=== PATIENT | female | born 1945 | race Caucasian/White ===

== ENCOUNTER 2016-03-09 13:32 | Outpatient (CLI) | payer MEDICARE, OTHER | END 2016-03-09 13:33 | disposition home or self-care (01) | DX: R91.1 Solitary pulmonary nodule (principal); R06.01 Orthopnea; R09.02 Hypoxemia; R09.89 Other specified symptoms and signs involving the circulatory and respiratory systems ==

== ENCOUNTER 2016-04-08 | Outpatient (CLI) | payer MEDICARE, OTHER | END 2016-04-08 09:41 | disposition short-term general hospital (02) | DX: R06.02 Shortness of breath (principal) | CPT/HCPCS: A0425; A0427 ==

== ENCOUNTER 2016-05-11 09:24 | Outpatient (CLI) | payer MEDICARE, OTHER ==
[2016-05-11] MEDS ORDERED: ALBUTEROL NEB 2.5 MG/3 ML INH ONE (09:33)
== END 2016-05-11 09:25 | disposition home or self-care (01) ==
DX: J44.9 Chronic obstructive pulmonary disease, unspecified (principal); R09.02 Hypoxemia
CPT/HCPCS: 94060; J7613

== ENCOUNTER 2016-06-08 10:36 | Outpatient (CLI) | payer MEDICARE, OTHER ==
[2016-06-08] MEDS ORDERED: IOPAMIDOL-300 50 ML VIAL IVP ONE (12:35)
== END 2016-06-08 10:37 | disposition home or self-care (01) ==
DX: R91.1 Solitary pulmonary nodule (principal); R49.0 Dysphonia; Z87.891 Personal history of nicotine dependence; J43.9 Emphysema, unspecified
CPT/HCPCS: 36415; 71260; 82565; Q9967

== ENCOUNTER 2016-08-13 08:32 | Outpatient (CLI) | payer MEDICARE, OTHER ==
[2016-08-13] MEDS ORDERED: GADOBUTROL 7.5 MMOL/7.5 ML VIAL IVP ONE (09:54)
--- NOTE | 2016-08-13 12:41 | MRI Report ---
EXAM: MRI BRAIN WITHOUT AND WITH CONTRAST EXAM DATE: 08/13/2016 10:12 AM. CLINICAL HISTORY: 71-year-old woman with lung cancer. COMPARISON: None. TECHNIQUE: Multiplanar, multisequence T1-weighted and fluid-sensitive MR sequences of the brain were performed. Sequences optimized for routine evaluation. Other: None. Without and with IV Contrast: 5 c c Gadavist. FINDINGS: Parenchyma: No evidence of acute infarct on diffusion weighted sequence. The parenchyma demonstrates moderate burden of nonspecific FLAIR hyperintensities in the deep cerebral and periventricular white matter, most consistent with sequelae of chronic small vessel ischemic disease and a common finding i n this age group. Susceptibility weighted sequences demonstrate a remote microhemorrhage in the right clay-trigonal white matter. No abnormal enhancement. Pituitary: Unremarkable. Ventricles and Extra-axial Spaces: Ventricles are symmetric and normal in size for age. Extra-axial s paces are unremarkable. No abnormal enhancement. Orbits: Unremarkable. Sinuses: The paranasal sinuses are clear except for a small mucous retention cyst in the right maxill sulma sinus. Mastoid air cells are clear. Major Vascular Flow Voids: Intact. Dural Venous Sinuses and Major Central Veins: Patent on post-contrast images. IMPRESSION: 1. No acute intracranial abnormality. Specifically, no evidence of acute infarct, hemorrhage, or mass lesion. No abnormal enhancement to suggest metastatic disease. 2. Moderate white matter changes, most consistent with sequelae of chronic small vessel ischemic dise ase and a common finding in this age group. [facility] Referring Provider Line: [phone] SITE ID: [id number]
== END 2016-08-13 08:33 | disposition home or self-care (01) ==
LOC: DI 08:32
PROVIDERS: ATTEND Internal Medicine Pulmonary Disease
DX: C34.91 Malignant neoplasm of unspecified part of right bronchus or lung (principal)
CPT/HCPCS: 70553; A9585

== ENCOUNTER 2016-09-11 09:30 | Outpatient (CLI) | payer MEDICARE, OTHER ==
--- NOTE | 2016-09-11 11:00 | Ultrasound Report ---
LEFT LEG VENOUS DUPLEX: 09/11/2016 CLINICAL INDICATION: Pain. TECHNIQUE: Real-time sonographic vascular imaging was performed by the planning technician through the left l ower extremity utilizing both color flow and Doppler spectral analysis. Multiple compliance representative stati c images were saved for review. FINDINGS: A left lower extremity venous sonogram is performed revealing the common femoral, superfici al femoral, profunda femoris, and popliteal veins to be adequately visualized without intraluminal de fects. There is normal venous compression, augmentation, phasicity, and spontaneity of venous flow. I n the calf, the visualized more cephalad portions of posterior tibial and peroneal veins are grossly compressible, without filling defects. IMPRESSION: NO EVIDENCE OF DEEP VENOUS THROMBOSIS. JOB #: [id number] EXT JOB #:[id number]
== END 2016-09-11 09:31 | disposition home or self-care (01) ==
LOC: DI 09:30
PROVIDERS: ATTEND Nurse Practitioner Family
DX: M79.605 Pain in left leg (principal)

== ENCOUNTER 2018-04-25 12:13 | Emergency (ER) | payer MEDICARE, OTHER ==
[2018-04-25] MEDS ORDERED: IPRATROPIUM/ALBUTEROL 3 ML NEB INH STA (12:39)
[2018-04-25] MEDS ORDERED: SODIUM CHLORIDE 0.9% 1,000 ML IV ONE (12:40)
--- NOTE | 2018-04-25 12:52 | ED Physician Documentation ---
History of Present Illness - Stated complaint Stated Complaint: SOA/DIZZY/NO APPITITE - Chief complaint Chief Complaint: Resp - History obtained from History obtained from: Patient - History of Present Illness Timing: How many weeks ago (3) Pain level max: 4 Pain level now: 3 Improved by: rest Worsened by: exertion - Additonal information Additional information: 73 year old female with history of Stage 3 lung CA 2 years ago that went untreated. now increased body aches, fatigue, dyspnea. Review of Systems Constitutional: denies: Fever, Chills Ears: denies: Ear pain Nose: denies: Rhinorrhea / runny nose, Congestion Respiratory: reports: Cough GI: denies: Vomiting, Diarrhea Skin: denies: Rash Musculoskeletal: denies: Neck pain, Back pain PD PAST MEDICAL HISTORY - Past Medical History Cardiovascular: Hypertension Respiratory: Other - Past Surgical History Past Surgical History: Yes Ortho: Hip replacement, Carpal Tunnel surgery /[employer]: Hysterectomy - Present Medications Home Medications: Ambulatory Orders Medication Instructions Recorded Confirmed Aspirin 1 tab PO DAILY 02/28/14 04/25/18 Lisinopril 1 tab DAILY 02/28/14 04/25/18 Albuterol Sulf [Ventolin Hfa 1 - 2 puffs INH Q4HR PRN #1 inhaler 04/25/18 Inhaler] Albuterol Sulf [Ventolin Hfa 2 puffs INH Q4HR PRN 04/25/18 04/25/18 Inhaler] Doxycycline Hyclate 100 mg PO BID #20 capsule 04/25/18 Ondansetron Odt [Zofran] 4 mg TL Q6H PRN #10 tablet 04/25/18 Tiotropium [place] [Spiriva] 1 cap INH DAILY 04/25/18 04/25/18 predniSONE [Deltasone] 10 mg PO [id number] #42 tab 04/25/18 - Allergies Allergies/Adverse Reactions: Allergies Allergy/AdvReac Type Severity Reaction Status Date / Time Penicillins Allergy Unknown Verified 04/25/18 12:26 vancomycin Allergy Unknown Verified 04/25/18 12:26 - Social History Does the pt smoke?: No Smoking Status: Former smoker Does the pt drink ETOH?: No Does the pt have substance abuse?: No - Immunizations Immunizations are current?: No Immunizations: TDAP >10years/unknown PD ED PE NORMAL - Vitals Vital signs reviewed: Yes - General General: Alert and oriented X 3, No acute distress, Well developed/nourished - HEENT HEENT: PERRL, Moist mucous membranes - Neck Neck: Supple, no meningeal sign - Cardiac Cardiac: RRR - Respiratory Respiratory: No respiratory distress, Other (Diminished breath sounds bilaterally) - Abdomen Abdomen: Soft, Non tender, Non distended - Derm Derm: Warm and dry, No rash - Extremities Extremities: No edema - Neuro Neuro: Alert and oriented X 3 - Psych Psych: Normal mood, Normal affect Results - Vitals Vitals: Vital Signs - 24 hr 04/25/18 04/25/18 04/25/18 12:20 12:37 13:01 Temperature 36.2 C L Heart Rate 118 H 114 H 98 Respiratory 26 H 24 16 Rate Blood Pressure 151/92 H 138/84 H O2 Saturation 94 94 04/25/18 04/25/18 13:44 14:23 Temperature Heart Rate 100 94 Respiratory 22 18 Rate Blood Pressure 145/84 H 147/69 H O2 Saturation 95 94 Oxygen O2 Source Room air - EKG (time done) 1241 Rate: Rate (enter#) (105) Rhythm: Sinus tachycardia [place]: Normal Intervals: Normal MO QRS: Normal Ischemia: Normal ST segments - Labs Labs: Laboratory Tests 04/25/18 04/25/18 04/25/18 12:50 12:50 12:50 WBC 7.7 RBC 4.77 Hgb 14.3 Hct 42.9 MCV 89.9 MCH 30.0 MCHC 33.4 RDW 12.9 Plt Count 367 MPV 7.7 L Neut # (Auto) 6.0 Lymph # (Auto) 1.[address] [facility] # (Auto) 0.5 Eos # (Auto) 0.1 Baso # (Auto) 0.1 Absolute Nucleated RBC 0.00 Nucleated RBC % 0.0 Sodium 140 Potassium 3.6 Chloride 102 Carbon Dioxide 28 Anion Gap 10.0 BUN 19 Creatinine 0.5 Estimated GFR (MDRD) 121 Glucose 126 H Calcium 9.8 Total Bilirubin 0.5 AST 23 ALT 16 Alkaline Phosphatase 65 Troponin I < 0.04 Total Protein 7.2 Albumin 3.7 Globulin 3.5 Albumin/Globulin Ratio 1.1 Lipase 24 - Rads (name of study) cxr Radiology: Prelim report reviewed, EMP read contemporaneously, See rad report (1. Lungs are well-expanded. Normal heart size. There is thoracic aortic calcification. 2. There is a 4 cm convexity within the right lower lobe. Differential considerations include mass or infiltrate. 3. No evidence of pneumothorax. ) PD MEDICAL DECISION MAKING - ED course Complexity details: reviewed results, re-evaluated patient, considered differential, d/w patient, d/w family ED course: 73-year-old female presents to the emergency department with difficulty breathing. She may have an infiltrate on her chest x-ray and will treat this. This however may be her untreated lung cancer as well. She does feel better after nebulizer treatment and will prescribe an inhaler for home. Patient is well-appearing, nontoxic. Afebrile. No hypoxia. We will have her follow-up with her doctor for a chest CT. Patient counseled regarding signs and symptoms for which I believe and urgent re-evaluation would be necessary. Patient with good understanding of and agreement to plan and is comfortable going home at this time This document was made in part using voice recognition software. While efforts are made to proofread this document, sound alike and grammatical errors may occur. Departure - Departure Disposition: Home, Self Care Clinical Impression: Moderate COPD (chronic obstructive pulmonary disease) Condition: Good Instructions: ED COPD Flare Follow-Up: Naa Arriaga DNP [Primary Care Provider] - Within 1 week Prescriptions: Albuterol Sulf [Ventolin Hfa Inhaler] 1 - 2 puffs INH Q4HR PRN #1 inhaler PRN Reason: Shortness Of Air/Wheezing Doxycycline Hyclate 100 mg PO BID #20 capsule Ondansetron Odt [Zofran] 4 mg TL Q6H PRN #10 tablet PRN Reason: Nausea / Vomiting predniSONE [Deltasone] 10 mg PO [id number] #42 tab Comments: We will trial you on antibiotics to see if this helps. You may have an enlarging lung mass on your x-ray however and this should be followed up with your doctor with a chest CT scan. Return if you worsen 1. Lungs are well-expanded. Normal heart size. There is thoracic aortic calcification. 2. There is a 4 cm convexity within the right lower lobe. Differential considerations include mass or infiltrate. 3. No evidence of pneumothorax.
[2018-04-25 12:56] LABS: BASOPHILS # (AUTO) 0.1 10^3/uL (0.0-0.1); BASOPHILS % (AUTO) 1.2 %; EOSINOPHILS # (AUTO) 0.1 10^3/uL (0.0-0.7); EOSINOPHILS % (AUTO) 1.1 %; HGB - HEMOGLOBIN 14.3 g/dL (12.0-16.0); LYMPHOCYTES % (AUTO) 13.3 %; MEAN CORPUSCULAR HGB CONC 33.4 g/dL (32.0-36.0); MEAN CORPUSCULAR VOLUME 89.9 fL (81.0-99.0); MEAN PLATELET VOLUME 7.7 fL (7.9-10.8); MONOCYTES # (AUTO) 0.5 10^3/uL (0.0-1.0); MONOCYTES % (AUTO) 6.7 %; NEUTROPHILS % (AUTO) 77.7 %; PLT - PLATELET COUNT 367 10^3/uL (130-450); RED BLOOD COUNT 4.77 10^6/uL (4.20-5.40); RED CELL DISTRIBUTION WIDTH 12.9 % (12.0-15.0); WHITE BLOOD COUNT 7.7 x10^3/uL (4.8-10.8)
[2018-04-25 13:08] LABS: ALBUMIN 3.7 g/dL (3.2-5.5); ALBUMIN/GLOBULIN RATIO 1.1 (1.0-2.2); BILIRUBIN,TOTAL 0.5 mg/dL (0.2-1.0); CALCIUM 9.8 mg/dL (8.5-10.3); CREATININE 0.5 mg/dL (0.4-1.0); TOTAL PROTEIN 7.2 g/dL (6.7-8.2)
--- NOTE | 2018-04-25 14:04 | XRAY Report ---
Reason: cough Procedure Date: 04/25/2018 Accession Number: [id number] / [id number] Procedure: XR - Chest 2 View X-Ray CPT Code: 26311 FULL RESULT: EXAM: CHEST RADIOGRAPHY EXAM DATE: 04/25/2018 01:39 PM. CLINICAL HISTORY: Cough. COMPARISON: XR CHEST AP PORTABLE 12/05/2014 6:29 PM CHEST W/ 06/08/2016 12:25 PM. TECHNIQUE: 2 views. FINDINGS: Lungs/Pleura: Lungs are well expanded. There is a convexity measuring approximately 4 cm in diameter within the right lower lobe. No evidence of large effusion. No pneumothorax. Mediastinum: Heart size is within normal limits. There is thoracic aortic calcification. Other: None. IMPRESSION: 1. Lungs are well-expanded. Normal heart size. There is thoracic aortic calcification. 2. There is a 4 cm convexity within the right lower lobe. Differential considerations include mass or infiltrate. 3. No evidence of pneumothorax. [facility]
[2018-04-25 15:00] VITALS: BP 166/71
== END 2018-04-25 15:00 | disposition home or self-care (01) ==
LOC: ED 12:13
DX: J44.9 Chronic obstructive pulmonary disease, unspecified (principal); R00.0 Tachycardia, unspecified; C34.90 Malignant neoplasm of unspecified part of unspecified bronchus or lung; I10 Essential (primary) hypertension; Z96.649 Presence of unspecified artificial hip joint; Z79.82 Long term (current) use of aspirin; Z87.891 Personal history of nicotine dependence
CPT/HCPCS: 36415; 71046; 80053; 83690; 84484; 85025; 93005; 94640; 94664; 99284

== ENCOUNTER 2018-05-10 10:25 | Outpatient (CLI) | payer MEDICARE, OTHER | END 2018-05-10 10:26 | disposition EMS.NT | LOC: EMS 10:25 | PROVIDERS: ATTEND Surgery | DX: R06.02 Shortness of breath (principal) ==

== ENCOUNTER 2018-05-11 11:35 | Outpatient (CLI) | payer MEDICARE, OTHER ==
[~2018-05-11 11:35] MED LIST: IOPAMIDOL-300 100 ML VIAL ONE
--- NOTE | 2018-05-11 13:13 | CT Report ---
Reason: COPD,ACUTE EXACERBATION,ABNORMAL CHEST RADIOGRAPH Procedure Date: 05/11/2018 Accession Number: [id number] / [id number] Procedure: CT - CHEST W CPT Code: FULL RESULT: EXAM: CT CHEST EXAM DATE: 05/11/2018 12:06 PM. CLINICAL HISTORY: Chronic obstructive pulmonary disease, acute exacerbation, abnormal chest radiograph. COMPARISONS: CHEST W/ 06/08/2016 12:25 PM. CHEST 2 VIEW 04/25/2018 1:28 PM. TECHNIQUE: Routine helical CT imaging was performed through the chest. IV contrast: 80 mL Isovue-300. Reconstructions: Coronal and sagittal. In accordance with CT protocol optimization, one or more of the following dose reduction techniques were utilized for this exam: automated exposure control, adjustment of mA and/or KV based on patient size, or use of iterative reconstructive technique. FINDINGS: Lungs/Pleura: The previously seen right apical nodule with spiculation now measures 1.1 x 0.6 cm coronally on image 20 series 7 and 1.2 cm axially on image 5 series 5. Previously seen right lower lobe nodule is now seen is a 5.1 x 6.8 cm mass on image 42 series 5 with surrounding interstitial thickening suggestive of lymphangitic spread of disease in at least the same lobe. There is significant air trapping in the left lower lobe, also seen previously. No pleural effusion or pneumothorax. Mediastinum: There is extensive lymphadenopathy, including a 2 x 3 x 1.5 cm right supraclavicular node on image 8 series 4, a thoracic inlet node on image 5, 1.8 x 2.2 cm, as well as anterior mediastinal lymphadenopathy best seen on image 17 which measures up to 2.4 cm, subcarinal lymphadenopathy measuring 2.8 x 1.8 cm on image 28 and a right hilar conglomerate of adenopathy measuring 4.1 x 2.6 cm. Patency of great vessels appears preserved with mass effect on the right lobar bronchi which are not yet fully obstructed. Bones: No aggressive osseous lesions are seen. Visualized Abdomen: Markedly atherosclerotic abdominal aorta with soft plaque/mural thrombus measuring up to 2.6 cm. Other: None. IMPRESSION: Right lung mass with evidence of lymphangitic spread and extensive mediastinal and supraclavicular lymphadenopathy as described. Atherosclerotic abdominal aorta as described. [facility]
[2018-05-11] MEDS ORDERED: IOPAMIDOL-300 100 ML VIAL IVP ONE (15:33)
== END 2018-05-11 11:36 | disposition home or self-care (01) ==
LOC: DI 11:35
PROVIDERS: ATTEND Nurse Practitioner
DX: C34.31 Malignant neoplasm of lower lobe, right bronchus or lung (principal); J44.1 Chronic obstructive pulmonary disease with (acute) exacerbation; R91.8 Other nonspecific abnormal finding of lung field; R09.02 Hypoxemia; R59.0 Localized enlarged lymph nodes; I70.0 Atherosclerosis of aorta
CPT/HCPCS: 71260; Q9967

== ENCOUNTER 2018-06-18 09:20 | Outpatient (CLI) | payer MEDICARE, OTHER | END 2018-06-18 09:21 | disposition hospice, home (50) | LOC: EMS 09:20 | PROVIDERS: ATTEND Surgery | DX: R53.1 Weakness (principal); R06.00 Dyspnea, unspecified; Z99.81 Dependence on supplemental oxygen; Z74.01 Bed confinement status | CPT/HCPCS: A0425; A0428 ==